=== PATIENT | male | born 1970 | race Caucasian/White ===

== ENCOUNTER 2016-05-23 08:43 | Emergency (ER) | payer OTHER ==
[~2016-05-23] VITALS: Ht 182.9 cm; Wt 118.0 kg
[~2016-05-23 08:43] MED LIST: ASPI81TA28 PO; CITA20TA9 PO; FLNIN NAE; LANS30CA12 PO; LOSA50TA6 PO; LPT20 PO; METO50TA17 PO
[2016-05-23 08:48] VITALS: TEMP 36.9; Ht 182.9 cm; Wt 118.0 kg
[2016-05-23 09:14] LABS: URINE APPEARANCE CLEAR (CLEAR); URINE BILIRUBIN NEG (NEG); URINE COLOR YELLOW; URINE EPITHELIAL CELL AUTO 0-5 /lpf (0-5); URINE NITRITE NEG (NEG); URINE SPECIFIC GRAVITY 1.011 (1.000-1.030); UROBILINOGEN NEG (NEG); ZZUR CULT IF INDIC CLEAN CATCH NO
[2016-05-23 09:16] LABS: MANUAL MICROSCOPIC REQUIRED? NO; REVIEW REQ? NO
[2016-05-23] MEDS ORDERED: IBUPROFEN 600 MG TAB PO STA (09:59)
--- NOTE | 2016-05-23 10:06 | EMERGENCY ROOM VISIT NOTE ---
History Report prepared by Junior: Pilo Hitchcock Under the Supervision of: Dr. Alfredo Cole M.D. First contact with patient: 09:36 Chief Complaint: URINARY SYMPTOMS Stated Complaint: BACK PAIN/NOT URININATING Nursing Triage Summary: pt c/o left flank pain strated on saturday while at work now having difficulty urinating and cannot move bowels. denies any n/v. father has hx of kidney failure History of Present Illness The patient is a 46 year old male who presents to the Emergency Room with complaints of worsening left sided flank pain that started 2 days ago. The patient rates the discomfort as an 8 out of 10 in severity and notes that it is radiating up his back. He also notes that he has been urinating less frequently than normal and that his urine has been a darker yellow color. The patient denies urgency, hematuria, or any recent trauma to flank. He has no history of kidney stones. Source of History: patient Onset: 2 days ago Position: other (left-flank) Symptom Intensity: 8/10 in severity Timing: worsening Associated Symptoms: + back pain (radiation to back), + urinary symptoms ( darker color and less frequency) Note: Denies: urinary urgency, hematuria, or any recent trauma. Review of Systems All systems have been listed, reviewed, and are negative other than those previously mentioned. Please see Additional Medical History Sheet. Past Medical & Surgical Surgical Problems: (1) S/P appendectomy Family History Patient reports no known family medical history. Social History Smoking Status: Current Every Day Smoker Alcohol Use: none Drug Use: none Marital Status: Occupation Status: employed Current/Historical Medications Scheduled Citalopram Hydrobromide (Celexa), 20 MG PO DAILY Fluticasone Propionate (Flonase Nasal [place]), 2 SPRAYS JOHN DAILY Lansoprazole (Prevacid), 30 MG PO DAILY Metoprolol Tartrate (Metoprolol Tartrate), 25 MG PO BID Scheduled PRN Ibuprofen Tab (Motrin), 600 MG PO Q6H PRN for Pain Allergies Coded Allergies: Hydrocodone (Verified Allergy, Unknown, itching, 05/23/16) Physical Exam Vital Signs Date Time Temp Pulse Resp B/P Pulse Ox O2 Delivery O2 Flow Rate FiO2 05/23/16 11:33 76 20 157/103 100 05/23/16 10:36 70 16 178/110 96 Room Air 05/23/16 08:48 36.9 79 18 197/133 96 Room Air Physical Exam GENERAL: Patient awake, alert, oriented x 3. Patient follows commands. Patient does not appear toxic. Patient is adequately hydrated and well- nourished. SKIN: No erythema, pallor, cyanosis or rash HEENT: Normal head, pupils equal, reactive to light and accommodation. Neck: Without adenopathy, no neck vein distention. LUNGS: Clear to auscultation. No wheezes, no rales, no rhonchi. HEART: No murmurs. No gallops. No rubs ABDOMEN: No masses, no rebound, no hepatomegaly or splenomegaly. Soft and nontender EXTREMITIES: No signs of trauma. No pedal or pretibial edema. No calf or thigh tenderness. BACK: No spinal or paraspinal tenderness. CVA tenderness on left-side. NEUROLOGIC: Cranial nerves II-XII within normal limits. No gross motor sensory function deficits. Medical Decision & Procedures ER Provider Diagnostic Interpretation: CT results are interpretations by the radiologist and per my review. CT SCAN OF THE ABDOMEN AND PELVIS WITHOUT CONTRAST CLINICAL HISTORY: left flank pain COMPARISON STUDY: No previous studies for comparison. TECHNIQUE: CT scan of the abdomen and pelvis was performed from the lung bases to the proximal femurs. Images are reviewed in the axial, sagittal, and coronal planes. IV contrast was not administered for this examination. CT DOSE: 1899.67 mGy.cm FINDINGS: Lower chest: There are minor bibasilar atelectatic changes. Liver: There is severe hepatic steatosis. There is focal fatty sparing adjacent to gallbladder fossa. Gallbladder: Unremarkable. Spleen: The spleen is borderline enlarged measuring 13 cm. Pancreas: Unremarkable. Adrenal glands: Unremarkable. Kidneys: No renal, ureteral, or bladder calculi are visualized. There is no hydronephrosis. Bowel: There are no transition zones indicate bowel obstruction. There is no evidence of acute diverticulitis. There are no findings to indicate acute appendicitis. Peritoneum: There is no intraperitoneal free air or abdominal ascites. Vasculature: The abdominal aorta is normal in course and caliber. Adenopathy: None. Pelvic viscera: The bladder, and pelvic viscera are unremarkable. Skeletal structures: There is 2 cm sclerotic lesion within the right iliac bone, likely representing a bone island. IMPRESSION: 1. No renal, ureteral, or bladder calculi identified 2. No evidence of bowel obstruction. No evidence of free air 3. No evidence of acute appendicitis. No evidence of acute diverticulitis 4. Hepatic steatosis. Borderline splenomegaly. Electronically signed by: Mason Mclaughlin M.D. 05/23/2016 10:40 AM Dictated Date/Time: 05/23/2016 10:36 AM Laboratory Results 05/23/16 09:39 05/23/16 09:39 Test 05/23/16 09:00 05/23/16 09:39 Urine Color YELLOW Urine Appearance CLEAR (CLEAR) Urine pH 5.0 (4.5-7.5) Urine Specific [place] 1.011 (1.000-1.030) Urine Protein NEG (NEG) Urine Glucose (UA) NEG (NEG) Urine Ketones NEG (NEG) Urine Occult Blood NEG (NEG) Urine Nitrite NEG (NEG) Urine Bilirubin NEG (NEG) Urine Urobilinogen NEG (NEG) Urine Leukocyte Esterase NEG (NEG) Urine WBC (Auto) 0 /hpf (0-5) Urine RBC (Auto) 0-4 /hpf (0-4) Urine Hyaline Casts (Auto) 0 /lpf (0-5) Urine Epithelial Cells (Auto) 0-5 /lpf (0-5) Urine Bacteria (Auto) NEG (NEG) Red Blood Count 4.95 M/uL (4.7-6.1) Mean Corpuscular Volume 89.9 fL (80-100) Mean Corpuscular Hemoglobin 32.5 pg (25-34) Mean Corpuscular Hemoglobin Concent 36.2 g/dl (32-36) RDW Standard Deviation 41.7 fL (36.4-46.3) RDW Coefficient of Variation 12.8 % (11.5-14.5) Mean Platelet Volume 9.8 fL (7.4-10.4) Anion Gap 11.0 mmol/L (3-11) Est Creatinine Clear Calc Drug Dose 140.8 ml/min Estimated GFR () 119.7 Estimated GFR (Non- 103.3 BUN/Creatinine Ratio 10.3 (10-20) Calcium Level 9.2 mg/dl (8.5-10.1) Laboratory results as stated above per my review. Medications Administered Medications (Trade) Dose Ordered Sig/Benjamin Route Start Time Stop Time Status Last Admin Dose Admin Ibuprofen (Motrin Tab) 600 mg NOW STAT PO 05/23/16 09:59 05/23/16 10:04 DC 05/23/16 10:18 600 MG ED Course 0955: Past medical records reviewed. The patient was evaluated in room C5. A complete history and physical examination was performed. 0959: Ordered Ibuprofen 600 mg PO. 1145: Upon reevaluation, the patient appeared to have improvement of his symptoms. I discussed today's findings with him. He verbalized agreement of the treatment plan. The patient was discharged home. Medical Decision Differential diagnoses include trauma, kidney stones, UTI, low back pain, musculoskeletal injury. Multiple labs and imaging were obtained. The patient has no evidence of a kidney stone. Urinalysis is clean. The patient does not appear to be infected. The patient appears to have musculoskeletal pain. He will be treated symptomatically with ibuprofen. Impression Primary Impression: Musculoskeletal pain Scribe Attestation The scribe's documentation has been prepared under my direction and personally reviewed by me in its entirety. I confirm that the note above accurately reflects all work, treatment, procedures, and medical decision making performed by me. Departure Information Dispostion Home / Self-Care Prescriptions Ibuprofen Tab (MOTRIN) 600 Mg Tab 600 MG PO Q6H Y for Pain, #20 TAB Prov: Alfredo Cole M.D. 05/23/16 Referrals Sarwat Deleon III, M.D. (PCP) Forms HOME CARE DOCUMENTATION FORM, IMPORTANT VISIT INFORMATION Patient Instructions A Signature Page, My [facility] Additional Instructions 600 mg ibuprofen every 6 hours until pain has resolved. Take ibuprofen with food. Follow-up with your family physician in one week if pain is not resolved. Return here sooner if pain is getting worse. Apply heat intermittently to your flank. Work Instructions Specific Date: 05/25/16
[2016-05-23 10:09] LABS: HEMATOCRIT 44.5 % (42-52); MEAN CELL VOLUME 89.9 fL (80-100); MEAN CORPUSCULAR HEMOGLOBIN 32.5 pg (25-34); MEAN CORPUSCULAR HGB CONC 36.2 g/dl (32-36); MEAN PLATELET VOLUME 9.8 fL (7.4-10.4); PLATELET COUNT 184 K/uL (130-400); RED BLOOD COUNT 4.95 M/uL (4.7-6.1); WHITE BLOOD COUNT 7.59 K/uL (4.8-10.8)
[2016-05-23 10:24] LABS: BUN/CREATININE RATIO 10.3 (10-20); CALCIUM 9.2 mg/dl (8.5-10.1); CREATININE 0.86 mg/dl (0.60-1.40); POTASSIUM 4.2 mmol/L (3.5-5.1)
--- NOTE | 2016-05-23 10:42 | DIAGNOSTIC IMAGING REPORT ---
CT SCAN OF THE ABDOMEN AND PELVIS WITHOUT CONTRAST CLINICAL HISTORY: left flank pain COMPARISON STUDY: No previous studies for comparison. TECHNIQUE: CT scan of the abdomen and pelvis was performed from the lung bases to the proximal femurs. Images are reviewed in the axial, sagittal, and coronal planes. IV contrast was not administered for this examination. CT DOSE: 1899.67 mGy.cm FINDINGS: Lower chest: There are minor bibasilar atelectatic changes. Liver: There is severe hepatic steatosis. There is focal fatty sparing adjacent to gallbladder fossa. Gallbladder: Unremarkable. Spleen: The spleen is borderline enlarged measuring 13 cm. Pancreas: Unremarkable. Adrenal glands: Unremarkable. Kidneys: No renal, ureteral, or bladder calculi are visualized. There is no hydronephrosis. Bowel: There are no transition zones indicate bowel obstruction. There is no evidence of acute diverticulitis. There are no findings to indicate acute appendicitis. Peritoneum: There is no intraperitoneal free air or abdominal ascites. Vasculature: The abdominal aorta is normal in course and caliber. Adenopathy: None. Pelvic viscera: The bladder, and pelvic viscera are unremarkable. Skeletal structures: There is 2 cm sclerotic lesion within the right iliac bone, likely representing a bone island. IMPRESSION: 1. No renal, ureteral, or bladder calculi identified 2. No evidence of bowel obstruction. No evidence of free air 3. No evidence of acute appendicitis. No evidence of acute diverticulitis 4. Hepatic steatosis. Borderline splenomegaly. Electronically signed by: Mason Mclaughlin M.D. 05/23/2016 10:40 AM Dictated Date/Time: 05/23/2016 10:36 AM
[2016-05-23] MEDS ORDERED: IBUP-1427 PO (11:15)
[2016-05-23 11:33] VITALS: BP 157/103; PULSE 76; O2SAT 100
== END 2016-05-23 11:36 | disposition home or self-care (01) ==
LOC: C.EDB 08:44 → C.EDC 11:36
DX: M79.1 Myalgia (principal); R39.198 Other difficulties with micturition; F17.200 Nicotine dependence, unspecified, uncomplicated

== ENCOUNTER 2017-06-03 01:04 | Emergency (ER) | payer OTHER ==
[~2017-06-03] VITALS: Ht 182.9 cm; Wt 113.8 kg
[~2017-06-03 01:04] MED LIST changes: -ASPI81TA28 PO; -LOSA50TA6 PO; -LPT20 PO
[2017-06-03 01:10] VITALS: TEMP 36.9; Ht 182.9 cm; Wt 113.8 kg
[2017-06-03] MEDS ORDERED: DiphenhydrAMINE HCL 50 MG/ML VIAL IV STA (01:22)
[2017-06-03] MEDS ORDERED: METOCLOPRAMIDE HCL INJ 5 MG/ML 2 ML VIAL IV STA (01:22)
[2017-06-03 01:40] LABS: BASO % 0.5 %; BASO ABS # 0.04 K/uL (0-0.2); EOS % 4.2 %; EOS ABS # 0.33 K/uL (0-0.5); HEMATOCRIT 42.8 % (42-52); HEMOGLOBIN 15.8 g/dL (14.0-18.0); IG# 0.03 K/uL (0.00-0.02); LYMPH % 39.7 %; LYMPH ABS # 3.09 K/uL (1.2-3.4); MEAN CELL VOLUME 90.1 fL (80-100); MEAN CORPUSCULAR HEMOGLOBIN 33.3 pg (25-34); MEAN CORPUSCULAR HGB CONC 36.9 g/dl (32-36); MEAN PLATELET VOLUME 9.8 fL (7.4-10.4); MONO % 7.3 %; MONO ABS # 0.57 K/uL (0.11-0.59); NEUT % 47.9 %; NEUT ABS # 3.72 K/uL (1.4-6.5); NUCLEATED RED BLOOD CELL ABS 0.06 K/uL (0-0); PLATELET COUNT 213 K/uL (130-400); RED CELL DISTRIBUTION WIDTH CV 12.5 % (11.5-14.5); RED CELL DISTRIBUTION WIDTH SD 40.9 fL (36.4-46.3); WHITE BLOOD COUNT 7.78 K/uL (4.8-10.8)
[2017-06-03 02:11] LABS: CALCIUM 8.7 mg/dl (8.5-10.1)
[2017-06-03] MEDS ORDERED: MAGNESIUM SULFATE 1GM / D5W 1 GM BAG IV STA (02:18)
[2017-06-03] MEDS ORDERED: DEXAMETHASONE **PF** INJ 10 MG/ML VIAL IV ONE (02:30)
[2017-06-03 02:38] LABS: POTASSIUM 4.2 mmol/L (3.5-5.1)
[2017-06-03] MEDS ORDERED: FLNIN/ NAE (03:46)
[2017-06-03] MEDS ORDERED: HYZ/50125 PO (03:46)
[2017-06-03] MEDS ORDERED: METO50TA16 PO (03:46)
[2017-06-03] MEDS ORDERED: ASPCH81X PO (03:47)
[2017-06-03 04:00] VITALS: BP 140/87
--- NOTE | 2017-06-03 04:02 | EMERGENCY ROOM VISIT NOTE ---
History First contact with patient: 01:15 Chief Complaint: HEADACHE Stated Complaint: HEADACHE History of Present Illness The patient is a 47 year old male who presents to the Emergency Room with complaints of severe headache for the past day and a half described as aching, ranging in severity 8 out of 10 from the right occipital region radiating forward behind the eye. Patient last had a migraine greater than 5 years ago. This feels different. No recent imaging. Patient denies chest pain, dyspnea, numbness, tingling, vision problems, hearing problems, recent illness, localized weakness, abdominal pain, injury. Patient noticed his blood pressure was high today and took extra metoprolol. Review of Systems See HPI for pertinent positives & negatives. A total of 10 systems reviewed and were otherwise negative. Past Medical/Surgical History Surgical Problems: (1) S/P appendectomy Hypertension Family History Patient reports no known family medical history. Social History Smoking Status: Current Every Day Smoker Alcohol Use: none Drug Use: none Marital Status: Housing Status: lives with family Occupation Status: employed Current/Historical Medications Scheduled Aspirin (Aspirin Chewable), 81 MG PO DAILY Citalopram Hydrobromide (Celexa), 20 MG PO DAILY Fluticasone Propionate (Fluticasone Propionate), 2 SPRAYS JOHN DAILY Hctz/Losartan (Hyzaar 12.5MG/50MG), 1 TAB PO DAILY Lansoprazole (Prevacid), 30 MG PO DAILY Metoprolol Tartrate (Lopressor) (Lopressor), 50 MG PO BID Physical Exam Vital Signs Date Time Temp Pulse Resp B/P (MAP) Pulse Ox O2 Delivery O2 Flow Rate FiO2 06/03/17 03:44 73 19 97 Room Air 06/03/17 03:30 135/89 06/03/17 03:29 76 17 97 06/03/17 03:14 75 20 98 06/03/17 03:00 134/88 06/03/17 02:59 72 16 98 06/03/17 02:44 70 18 96 06/03/17 02:39 72 19 97 Room Air 06/03/17 02:31 141/94 06/03/17 02:24 73 20 97 06/03/17 02:09 77 18 97 06/03/17 02:00 161/103 06/03/17 01:54 73 17 06/03/17 01:49 75 19 06/03/17 01:47 165/106 06/03/17 01:45 75 06/03/17 01:24 182/104 06/03/17 01:23 182/104 06/03/17 01:10 36.9 78 18 191/129 98 Room Air Physical Exam VITALS: Vitals are noted on the nurse's note and reviewed by myself. Vital signs hypertensive. GENERAL: Pleasant male who appears in pain, in no acute distress, nondiaphoretic , well-developed well-nourished. SKIN: The skin was without rashes, erythema, edema, or bruising. There is no tenting of the skin. Capillary reflex less than 2 seconds. HEAD: Normocephalic atraumatic. EARS: External auditory canals clear, tympanic membranes pearly mary without erythema or effusion bilaterally. EYES: Pupils equal round and reactive to light and accommodation. Conjunctivae without injection, sclerae without icterus. Extraocular movements intact. NOSE: Patent, turbinates without inflammation or discharge. No sinus tenderness. MOUTH: Mucous membranes moist. Pharynx without erythema or exudate. Uvula midline. Airway patent. Tongue does not deviate. NECK: Supple without nuchal rigidity. No lymphadenopathy. No thyromegaly. Cervical spine is nontender. No JVD. HEART: Regular rate and rhythm LUNGS: Clear to auscultation bilaterally without wheezes, rales or rhonchi. No dullness to percussion. No retractions or accessory muscle use. ABDOMEN: Positive bowel sounds x 4. Normal tympanic percussion. Soft, nontender, without masses or organomegaly. Oconnor sign negative. No guarding or rebound tenderness. MUSCULOSKELETAL: No muscle atrophy, erythema, or edema noted. NEURO: Patient was alert and oriented to person place and time. Normal sensation to light and sharp touch. No focal neurological deficits. Cranial nerves II-12 grossly intact. No pronator drift. Cerebellar exam intact. Medical Decision & Procedures Laboratory Results 06/03/17 01:25 Red Blood Count 4.75, Mean Corpuscular Volume 90.1, Mean Corpuscular Hemoglobin 33.3, Mean Corpuscular Hemoglobin Concent 36.9, Mean Platelet Volume 9.8, Neutrophils (%) (Auto) 47.9, Lymphocytes (%) (Auto) 39.7, Monocytes (%) (Auto) 7.3, Eosinophils (%) (Auto) 4.2, Basophils (%) (Auto) 0.5, Neutrophils # (Auto) 3.72, Lymphocytes # (Auto) 3.09, Monocytes # (Auto) 0.57, Eosinophils # (Auto) 0.33, Basophils # (Auto) 0.04 06/03/17 01:25 Test 06/03/17 01:25 White Blood Count 7.78 K/uL (4.8-10.8) Red Blood Count 4.75 M/uL (4.7-6.1) Hemoglobin 15.8 g/dL (14.0-18.0) Hematocrit 42.8 % (42-52) Mean Corpuscular Volume 90.1 fL (80-100) Mean Corpuscular Hemoglobin 33.3 pg (25-34) Mean Corpuscular Hemoglobin Concent 36.9 g/dl (32-36) Platelet Count 213 K/uL (130-400) Mean Platelet Volume 9.8 fL (7.4-10.4) Neutrophils (%) (Auto) 47.9 % Lymphocytes (%) (Auto) 39.7 % Monocytes (%) (Auto) 7.3 % Eosinophils (%) (Auto) 4.2 % Basophils (%) (Auto) 0.5 % Neutrophils # (Auto) 3.72 K/uL (1.4-6.5) Lymphocytes # (Auto) 3.09 K/uL (1.2-3.4) Monocytes # (Auto) 0.57 K/uL (0.11-0.59) Eosinophils # (Auto) 0.33 K/uL (0-0.5) Basophils # (Auto) 0.04 K/uL (0-0.2) RDW Standard Deviation 40.9 fL (36.4-46.3) RDW Coefficient of Variation 12.5 % (11.5-14.5) Immature Granulocyte % (Auto) 0.4 % Immature Granulocyte # (Auto) 0.03 K/uL (0.00-0.02) Nucleated RBC Absolute Count (auto) 0.06 K/uL (0-0) Nucleated Red Blood Cells % 0.8 % Anion Gap 8.0 mmol/L (3-11) Est Creatinine Clear Calc Drug Dose 117.7 ml/min Estimated GFR () 102.7 Estimated GFR (Non- 88.6 BUN/Creatinine Ratio 10.5 (10-20) Calcium Level 8.7 mg/dl (8.5-10.1) Chemistry Specimen Hemolysis Medications Administered Medications (Trade) Dose Ordered Sig/Benjamin Route Start Time Stop Time Status Last Admin Dose Admin Metoclopramide HCl (Reglan Inj) 10 mg NOW STAT IV 06/03/17 01:22 06/03/17 01:23 DC 06/03/17 01:53 10 MG Diphenhydramine HCl (Benadryl Inj) 12.5 mg NOW STAT IV 06/03/17 01:22 06/03/17 01:23 DC 06/03/17 01:49 12.5 MG Dexamethasone Sodium Phosphate (Dexamethasone Inj Pf) 10 mg NOW ONCE IV 06/03/17 02:30 06/03/17 02:31 DC 06/03/17 02:25 10 MG Magnesium Sulfate (Magnesium Sulfate) 2 gm NOW STAT IV 06/03/17 02:18 06/03/17 02:19 DC 06/03/17 02:28 2 GM ED Course Prior records/ancillary studies reviewed. Triage Nursing notes reviewed. The patient's history was concerning for headache. Differential diagnosis: Etiologies such as migraine headache, meningitis, sinusitis, CO exposure, ICH, SAH, infection, tumor, headache, sinus thrombosis, arterial dissection, as well as others were entertained. Physical examination findings: As above. Non-focal. ER treatment provided: Reglan, Benadryl On reassessment the patient felt better. Diagnostics interpreted by me: The labs revealed stable H&H. Hyperglycemia without DKA Imaging studies: CT HEAD: COMPARISON: 04/07/2010 IMPRESSION: No ICH, mass effect, or midline shift. No acute cortical infarct. Radiologist: Kelsey Gonzalez M.D. This appears to be consistent with headache that could be from occipital neuralgia. Patient was neurovascularly and neurologically intact. The blood pressure did improve. Patient was advised follow-up family care for screening for diabetes and for further evaluation and workup this week. He was advised to return to the ER immediately for headache, fevers, numbness, tingling, worsening signs or symptoms or as needed. Patient was tolerating fluids and ambulated out of the ER without difficulties. Patient states he felt much better and wanted to leave. By the evaluation outlined above emergent etiologies such as meningitis, sinusitis, CO exposure, ICH, SAH, infection, temporal arteritis, tumor, sinus thrombosis, arterial dissection, as well as others were deemed relatively unlikely. The pt informed about the findings as listed above. All questions were answered and pleased with the treatment. Return instructions were outlined and the patient was discharged in stable condition. Referral: The patient was referred back to their primary care physician for follow-up in 2 to 3 days for a recheck of the current condition. Case reviewed by attending Medical Decision As above Medication Reconcilliation Current Medication List: was personally reviewed by me Blood Pressure Screening Patient's blood pressure: Elevated blood pressure Blood pressure disposition: Referred to PCP Impression Primary Impression: Headache Additional Impression: Hyperglycemia Departure Information Dispostion Home / Self-Care Condition GOOD Referrals Sarwat Deleon III, M.D. (PCP) Patient Instructions My [facility] Additional Instructions DO NOT drive, drink alcohol, operate machinery, or perform dangerous activities today. You were given medications in the ER that can affect your ability to safely function or operate a vehicle. Your blood sugar was high today. Recheck this with family care for possible diabetes. Rest today in a quiet, peaceful, dark environment and get a full 8-10 hrs of sleep tonight. Avoid loud noises, smoke/smoking, alcohol, bright lights, stress, or physical exertion today to minimize the chance the headache may return. Continue current medications. Ibuprofen(Motrin, Advil) may be used for fever or pain. Use 600mg every six hours as needed. Take with food. Avoid using more than 2400mg in a 24 hour period. Do not use 2400mg per day for more than three consecutive days without physician direction. Prolonged inappropriate use can lead to stomach upset or ulcers. (AND/OR) Acetaminophen(Tylenol) may be used for fever or pain. Use 1000mg every six hours as needed. Avoid using more than 3000mg in a 24 hour period. Return to the ER for passing out, worsening headache, vision problems, neck stiffness/pain, fevers, vomiting, worsening of your condition, or as needed. Follow up with your primary physician and/or a neurologist in 2-3 days for a recheck of your current condition. Problem Qualifiers Primary Impression: Headache Headache type: unspecified Headache chronicity pattern: acute headache Intractability: not intractable Qualified Codes: R51 - Headache
[2017-06-03 04:19] VITALS: PULSE 72; O2SAT 96
--- NOTE | 2017-06-03 07:11 | DIAGNOSTIC IMAGING REPORT ---
HEAD CT NONCONTRAST CT DOSE: 614.27 mGy.cm HISTORY: Severe headache. TECHNIQUE: Multiaxial CT images of the head were performed without the use of intravenous contrast. Automated exposure control was utilized for this study. A dose lowering technique was utilized adhering to the principles of ALARA. Comparison: None. Findings: The single opacified and expanded right ethmoid air cell. This likely represents a mucocele. The calvarium and skull base are intact. The ventricles and sulci are within normal limits. There is no mass, hematoma, midline shift, or acute infarct. Impression: No acute intracranial abnormality. Right ethmoid mucocele. Nonemergent ENT consultation may help for further evaluation. Electronically signed by: Bony Sutton M.D. 06/03/2017 7:10 AM Dictated Date/Time: 06/03/2017 7:07 AM
== END 2017-06-03 04:26 | disposition home or self-care (01) ==
LOC: C.EDB 01:05
DX: R51 Headache (principal); R73.9 Hyperglycemia, unspecified; I10 Essential (primary) hypertension; Z79.82 Long term (current) use of aspirin; Z79.899 Other long term (current) drug therapy; F17.200 Nicotine dependence, unspecified, uncomplicated